=== PATIENT | male | born 1965 | race African-American/Black ===

== ENCOUNTER 2018-01-30 21:14 | Emergency (ER) | payer OTHER ==
[~2018-01-30] VITALS: Ht 180.3 cm; Wt 79.4 kg
[2018-01-30] MEDS ORDERED: CARDURA4 MG PO (22:03)
[2018-01-30] MEDS ORDERED: ZOLOFT50 MG PO (22:03)
[2018-01-30] MEDS ORDERED: PREDNISONE 10 M10 M1 PO (22:03)
[2018-01-30 22:50] VITALS: BP 111/61
== END 2018-01-30 22:55 ==
LOC: ER 21:14
DX: S40.862A Insect bite (nonvenomous) of left upper arm, initial encounter (principal); S90.562A Insect bite (nonvenomous), left ankle, initial encounter; D86.9 Sarcoidosis, unspecified; Z88.8 Allergy status to other drugs, medicaments and biological substances; W57.XXXA Bitten or stung by nonvenomous insect and other nonvenomous arthropods, initial encounter; Y92.89 Other specified places as the place of occurrence of the external cause; Y93.89 Activity, other specified; Y99.8 Other external cause status